=== PATIENT | male | born 1965 | race Caucasian/White ===

== ENCOUNTER 2021-01-18 06:47 | Day surgery (SDC) | payer OTHER, SELFPAY ==
[~2021-01-18] VITALS: Ht 167.6 cm; Wt 136.1 kg
[2021-01-18] MEDS ORDERED: MIDAZOLAM 5 MG/5 ML VIAL ONE (10:09)
[2021-01-18] MEDS ORDERED: fentaNYL citrate 0.05 MG/ML VIAL ONE (10:10)
[2021-01-18] MEDS ORDERED: LIDOCAINE 2% 100 MG/5 ML UJET TP ONE ×2 (10:15→10:45)
[2021-01-18] MEDS ORDERED: fentaNYL citrate 0.05 MG/ML VIAL IVP ONE (11:10)
== END 2021-01-18 12:17 | disposition home or self-care (01) ==
LOC: MDS 06:47 → MMU 06:48 → MDS 12:17
PROVIDERS: ATTEND Internal Medicine Gastroenterology
DX: Z12.11 Encounter for screening for malignant neoplasm of colon (principal); D12.0 Benign neoplasm of cecum; D12.3 Benign neoplasm of transverse colon; Z86.010 Personal history of colon polyps; I10 Essential (primary) hypertension; E11.9 Type 2 diabetes mellitus without complications; Z79.84 Long term (current) use of oral hypoglycemic drugs; Z79.899 Other long term (current) drug therapy; Z98.0 Intestinal bypass and anastomosis status; Z20.828 Contact with and (suspected) exposure to other viral communicable diseases
CPT/HCPCS: 45385; J3010; U0003; J2250